=== PATIENT | female | born 2000 | race Caucasian/White ===

== ENCOUNTER 2019-07-18 01:09 | Emergency (ER) | payer SELFPAY ==
--- NOTE | 2019-07-18 03:01 | ED ---
Substance Abuse/Use - HPI Summary HPI Summary: The pt is an 18 yr old female presenting to [facility] c/o EtOH intoxication. Per EMS , friends report they were drinking excessively earlier today. LEVEL 5 caveat, pt is unable to provide full history due to intoxication. - History Of Current Complaint Chief Complaint: EDSubstanceAbuse Stated Complaint: ETOH/FALL PER FRIEND Time Seen by Provider: 07/18/19 01:26 Hx Obtained From: Patient Hx From Patient Unobtainable Due To: Other - LEVEL 5 caveat, pt is unable to provide full history due to intoxication. Ingestion History: Type/Name Of Drug - alcohol Overdose Characteristics: Oral Associated Signs And Symptoms: Vomiting PMH/Surg Hx/FS Hx/Imm Hx - Surgical History Other Surgical History: LEVEL 5 caveat, pt is unable to provide full history due to intoxication. Infectious Disease History: No Infectious Disease History: Denies: Traveled Outside the [place] in Last 30 Days - Family History Family History: LEVEL 5 caveat, pt is unable to provide full history due to intoxication. - Social History Alcohol Use: today Substance Use Type: Reports: Other Substance Use Comment - Amount & Last Used: unknown Smoking Status (MU): Unknown if Ever Smoked Review of Systems Positive: Vomiting All Other Systems Reviewed And Are Negative: No - Comments Additional Review of Systems Comments: LEVEL 5 caveat, pt is unable to provide full history due to intoxication. Physical Exam - Summary Physical Exam Summary: Appearance: Well-appearing, Well-nourished, lying in bed comfortably [add in things like actively vomiting, combative, etc as appropriate] Skin: Warm, dry, no obvious rash Eyes: sclera anicteric, no conjunctival pallor ENT: mucous membranes moist, pharynx appears normal Neck: Supple, nontender Respiratory: Clear to auscultation, no signs of respiratory distress Cardiovascular: Normal S1, S2. No murmurs. Normal distal pulses in tibial and radial bilaterally. Abdomen: Soft, nontender, normal active bowel sounds present Musculoskeletal: Normal, Strength/ROM Intact Neurological: Awake, alert, able to answer questions although not always appropriate, can tell me her name but not where she goes to college. Psychiatric: Not anxious Triage Information Reviewed: Yes Vital Signs On Initial Exam: Initial Vitals Temp Pulse Resp BP Pulse Ox 97.8 F 124 22 115/85 97 07/18/19 01:12 07/18/19 01:12 07/18/19 01:12 07/18/19 01:12 07/18/19 01:12 Vital Signs Reviewed: Yes Completion Of Physical Exam Limited Due To: Level 5 - LEVEL 5 caveat, pt is unable to provide full history due to intoxication. Procedures - Sedation Patient Received Moderate/Deep Sedation with Procedure: No Diagnostics - Vital Signs Vital Signs Temp Pulse Resp BP Pulse Ox 07/18/19 02:30 80 99/58 100 07/18/19 02:01 75 99 07/18/19 02:00 79 107/73 100 07/18/19 01:30 117 130/90 100 07/18/19 01:27 56 98 07/18/19 01:12 97.8 F 124 22 115/85 97 - Laboratory Lab Results: Lab Results 07/18/19 Range/Units 01:45 Serum Alcohol 268 H (<10) mg/dL Lab Statement: Any lab studies that have been ordered have been reviewed, and results considered in the medical decision making process. Course/Dx - Course Course Of Treatment: The pt is an 18 yr old female presenting to [facility] c/o EtOH intoxication. They were drinking excessively earlier today. LEVEL 5 caveat, pt is unable to provide full history due to intoxication. Pt will be a sign out to Dr. Jennings at the 0707/18/2019 shift change pending sobriety and disposition. - Diagnoses Provider Diagnoses: Alcohol intoxication Discharge ED - Sign-Out/Discharge Documenting (check all that apply): Sign-Out Patient - Pt will be a sign out to Dr. Jennings at the 69907/18/2019 shift change pending sobriety and disposition. Signing out patient TO: Pranay Jennings - Discharge Plan Condition: Stable Disposition: HOME Patient Education Materials: Alcohol Intoxication (ED) Referrals: [facility] @ [Outside] - Billing Disposition and Condition Condition: STABLE Disposition: Home - Attestation Statements Document Initiated by Rileye: Yes Documenting Scribe: Mendel Diaz Provider For Whom Mayra is Documenting (Include Credential): Kyle Haley MD Scribe Attestation: Mendel Gibbons, scribed for Kyle Haley MD on 07/20/19 at 1614. Scribe Documentation Reviewed: Yes Provider Attestation: The documentation as recorded by the Mendel morin accurately reflects the service I personally performed and the decisions made by me, Kyle Haley MD Status of Scribe Document: Viewed
--- NOTE | 2019-07-18 07:31 | ED ---
Progress - Progress Note Progress Note: Dr. Jennings receives patient as sign-out from Dr. Haley at 0700 07/18/19 pending sobriety and disposition. Course/Dx - Course Course Of Treatment: Pt is sign out to Dr. Jennings at the 0700 07/18/[address] Haley pending sobriety and disposition. Pt will be discharged with dx alcohol intoxication with follow up at [facility]. - Diagnoses Provider Diagnoses: Alcohol intoxication Discharge ED - Sign-Out/Discharge Documenting (check all that apply): Patient Departure - discharge Receiving patient FROM: Kyle Haley - Discharge Plan Condition: Stable Disposition: HOME Patient Education Materials: Alcohol Intoxication (ED) Referrals: [facility] @ [facility] [Outside] - Billing Disposition and Condition Condition: STABLE Disposition: Home - Attestation Statements Document Initiated by Mayra: Yes Documenting Scribe: Ermelinda Reyna Provider For Whom Mayra is Documenting (Include Credential): Dr. Allan Jennings D.O. Scribe Attestation: Ermelinda Gibbons, scribed for Dr. Allan Jennings D.O. on 07/18/19 at 1033. Scribe Documentation Reviewed: Yes Provider Attestation: The documentation as recorded by the Ermelinda morin accurately reflects the service I personally performed and the decisions made by , Dr. Allan Jennings D.O. Status of Scribe Document: Viewed
[2019-07-18 09:54] VITALS: BP 114/81
== END 2019-07-18 09:56 | disposition home or self-care (01) ==
LOC: ED 01:09
DX: F10.929 Alcohol use, unspecified with intoxication, unspecified (principal)
CPT/HCPCS: 36415; 80320; 99282; G0480